=== PATIENT | female | born 1955 | race Caucasian/White ===

== ENCOUNTER → 2018-10-28 | Outpatient (CLI) | payer OTHER ==
[~2018-10-28] MED LIST: Augmentin 875-1 EACH PO; CODACE30 PO; CYCL10 PO; DHEA25 MG PO; GABA100 PO; PROG100 PO; VITAMIN D PO; [UNRECOGNIZED DRUG - OTHER] PO
[2018-10-28 12:42] LABS: Appearance, Urine Clear (Clear); Bilirubin, Urine Neg (Neg); Blood, Urine Neg (Neg); Color, Urine Yellow (P-Yellow); Glucose Qualitative, Urine Neg (Neg); Ketones, Urine Neg (Neg); Leukocyte Esterase, Urine Neg (Neg); Nitrite, Urine Neg (Neg); Protein, Urine Neg (Neg); Specific Gravity, Urine 1.005 (1.003-1.022); Urobilinogen, Urine NORM (Normal)
== END | disposition home or self-care (01) ==
LOC: LAB 12:31 → LAB SHORT 12:31
PROVIDERS: Nurse Practitioner
DX: R10.9 Unspecified abdominal pain (principal)
CPT/HCPCS: 81003

== ENCOUNTER 2021-11-19 06:41 | Day surgery (SDC) | payer OTHER ==
[~2021-11-19] VITALS: Wt 66.0 kg
[2021-11-19] MEDS ORDERED: CELE100 (07:15)
[2021-11-19] MEDS ORDERED: LEVSOD75 (07:15)
[2021-11-19] MEDS ORDERED: BACLOFEN5 M1 (07:16)
--- NOTE | 2021-11-19 08:30 | NUR ---
11/19/21 0830 ANGY RAM RED/BLACK SCOPE.JOSE F USED:R FLANK PAD SITE W CLEAN REMOVAL OF PAD.
--- NOTE | 2021-11-19 10:15 | NUR ---
11/19/21 1015 Myriam Luong PT. VERBALIZES HER HAND IS SORE WHERE IV IS IN. (RIGHT HAND) SMALL AMT. BRUISING OBSERVED WHERE ATTEMPT WAS, PT. INSTRUCTED ON THIS.
== END 2021-11-19 09:50 | disposition home or self-care (01) ==
LOC: ORSCSDS 06:41
PROVIDERS: Student in an Organized Health Care Education/Training Program
PROC: 0DBK8ZX Excision of Ascending Colon, Via Natural or Artificial Opening Endoscopic, Diagnostic (ICD-10-PCS; principal; 2021-11-19 08:00)
PROC: 0DBL8ZX Excision of Transverse Colon, Via Natural or Artificial Opening Endoscopic, Diagnostic (ICD-10-PCS; principal; 2021-11-19 08:00)
PROC: 3E0H8KZ Introduction of Other Diagnostic Substance into Lower GI, Via Natural or Artificial Opening Endoscopic (ICD-10-PCS; principal; 2021-11-19 08:00)
PROC: 0DBN8ZX Excision of Sigmoid Colon, Via Natural or Artificial Opening Endoscopic, Diagnostic (ICD-10-PCS; principal; 2021-11-19 08:00)
DX: Z12.11 Encounter for screening for malignant neoplasm of colon (principal); D12.2 Benign neoplasm of ascending colon; D12.3 Benign neoplasm of transverse colon; Z80.0 Family history of malignant neoplasm of digestive organs; E03.9 Hypothyroidism, unspecified; Z79.899 Other long term (current) drug therapy
CPT/HCPCS: 88305; J2405; J2704; J7120

== ENCOUNTER 2022-07-21 11:59 | Day surgery (SDC) | payer OTHER ==
[~2022-07-21] VITALS: Ht 162.6 cm; Wt 64.4 kg
[~2022-07-21 11:59] MED LIST changes: +BACLOFEN5 M1; +CELE100; +LEVSOD75
== END 2022-07-21 14:41 | disposition home or self-care (01) ==
LOC: ORSCSDS 11:59
PROVIDERS: Student in an Organized Health Care Education/Training Program
PROC: 0DBH8ZX Excision of Cecum, Via Natural or Artificial Opening Endoscopic, Diagnostic (ICD-10-PCS; principal; 2022-07-21 13:15)
PROC: 0DBK8ZX Excision of Ascending Colon, Via Natural or Artificial Opening Endoscopic, Diagnostic (ICD-10-PCS; principal; 2022-07-21 13:15)
DX: Z86.010 Personal history of colon polyps (principal); Z80.0 Family history of malignant neoplasm of digestive organs; K63.5 Polyp of colon; E03.9 Hypothyroidism, unspecified; Z79.899 Other long term (current) drug therapy
CPT/HCPCS: 88305; J2405; J2704; J7120

== ENCOUNTER 2023-06-30 06:41 | Day surgery (SDC) | payer OTHER ==
[~2023-06-30] VITALS: Ht 162.6 cm; Wt 68.5 kg
[~2023-06-30 06:41] MED LIST changes: -BACLOFEN5 M1; +BACLOFEN5 M1 PO; -CELE100; +CELE100 PO; +LEVOTHYROXINE50 MC9 PO; -LEVSOD75; +LEVSOD75 PO
[2023-06-30 08:54] VITALS: BP 128/83
--- NOTE | 2023-06-30 08:56 | NUR ---
06/30/23 0856 BRISA NORMAN IV REMOVED CATHETER INTACT WDL
== END 2023-06-30 09:04 | disposition home or self-care (01) ==
LOC: ORSCSDS 06:41
PROVIDERS: Surgery
PROC: 0DBP8ZX Excision of Rectum, Via Natural or Artificial Opening Endoscopic, Diagnostic (ICD-10-PCS; principal; 2023-06-30 08:00)
DX: Z86.010 Personal history of colon polyps (principal); Z80.0 Family history of malignant neoplasm of digestive organs; K62.1 Rectal polyp; E03.9 Hypothyroidism, unspecified; F32.A Depression, unspecified; L51.1 Stevens-Johnson syndrome; Z79.899 Other long term (current) drug therapy
CPT/HCPCS: 88305; J2405; J2704; J7120

== ENCOUNTER → 2025-08-07 | Outpatient (CLI) | payer OTHER ==
[2025-08-07 18:15] LABS: BASOPHILS ABSOLUTE AUTO 0.06 K/mm3 (0.00-0.23); BASOPHILS PERCENT AUTO 1 % (0-2); EOSINOPHILS ABSOLUTE AUTO 0.20 K/mm3 (0.00-0.68); EOSINOPHILS PERCENT AUTO 3 % (0-6); Hematocrit 39.1 % (33.0-51.0); Hemoglobin 12.9 g/dL (11.5-16.0); IMMATURE GRAN ABSOLUTE AUTO 0.04 K/mm3 (0.00-0.10); IMMATURE GRAN PERCENT AUTO 1 % (0-1); LYMPHOCYTES ABSOLUTE AUTO 2.28 K/mm3 (0.84-5.20); LYMPHOCYTES PERCENT AUTO 28 % (21-46); MONOCYTES ABSOLUTE AUTO 0.51 K/mm3 (0.16-1.47); MONOCYTES PERCENT AUTO 6 % (4-13); Mean Corpuscular HGB Conc 33.0 g/dL (31.5-36.5); Mean Corpuscular Volume 92 fL (80-100); NEUTROPHILS ABSOLUTE AUTO 4.99 K/mm3 (1.96-9.15); NEUTROPHILS PERCENT AUTO 62 % (41-73); NRBC ABSOLUTE 0.00 K/mm3 (0.00-0.02); NRBC Auto 0.0 /100 WBC (0.0-0.2); Platelet Count 284 K/mm3 (150-400); RDW Coefficient Variation 13.2 % (11.7-14.2); RDW Standard Deviation 44.3 fL (35.1-46.3)
[2025-08-07 18:44] LABS: C-REACTIVE PROTEIN, EXT RANGE <0.290 mg/dL (0.000-0.300)
[2025-08-07 19:20] LABS: Alanine Aminotransfer (ALT/SGP 37 U/L (12-78); Albumin, Blood 4.0 g/dL (3.4-5.0); Albumin/Globulin Ratio 1.1 (0.8-1.8); Anion Gap 8 mmol/L (3-11); Aspartate Aminotrans (AST/SGOT 24 U/L (12-37); Bilirubin, Total 0.4 mg/dL (0.1-1.0); Blood Urea Nitrogen 14 mg/dL (8-24); CO2, Blood 26 mmol/L (21-32); Calcium, Blood 9.3 mg/dL (8.5-10.1); Chloride, Blood 108 mmol/L (98-108); Creatinine, Blood 0.63 mg/dL (0.40-1.00); Globulin, Blood 3.6 g/dL (2.2-4.0); Glucose, Blood 93 mg/dL (70-99); Potassium, Blood 3.8 mmol/L (3.5-5.5); Sodium, Blood 138 mmol/L (136-145); Total Protein, Blood 7.6 g/dL (6.4-8.2)
[2025-08-09 22:07] LABS: RHEUMATOID FACTOR <10 IU/mL (0-14)
[2025-08-11 03:34] LABS: ANTI-NUCLEAR AB ANA,IGG ELISA None Detected (None Detected)
== END ==
LOC: LAB SHORT 17:47 → LAB 17:47
PROVIDERS: Student in an Organized Health Care Education/Training Program
DX: M25.50 Pain in unspecified joint (principal); R70.0 Elevated erythrocyte sedimentation rate; E03.9 Hypothyroidism, unspecified
CPT/HCPCS: 80053; 85025; 85651; 86038; 86140; 86431